=== PATIENT | male | born 1990 | race Two or more races ===

== ENCOUNTER 2025-01-21 03:37 | Emergency (ER) | payer OTHER ==
[~2025-01-21] VITALS: Ht 180.3 cm; Wt 90.9 kg
[2025-01-21 03:41] VITALS: TEMP 98.1
[2025-01-21] MEDS ORDERED: IBUP-1492 PO (06:21)
[2025-01-21] MEDS: IBUPROFEN 600 MG TABLET PO ONE (06:30)
[2025-01-21 07:23] VITALS: BP 111/80; PULSE 70; RESP 17; O2SAT 99
== END 2025-01-21 07:51 | disposition home or self-care (01) ==
LOC: EMS 03:37
DX: G56.30 Lesion of radial nerve, unspecified upper limb (principal)
CPT/HCPCS: 99283